=== PATIENT | male | born 1955 | race Caucasian/White ===

== ENCOUNTER 2018-01-27 08:47 | Day surgery (SDC) | payer OTHER ==
[2018-01-27 08:34] VITALS: BMI 30.5
[2018-01-27 10:54] VITALS: TEMP 97.5
[2018-01-27 12:29] VITALS: BP 124/86; PULSE 66
--- NOTE | 2018-01-29 10:32 | PATH ---
Surgical Pathology Report Patient Name: JAIDA NAM [facility]. Rec. #: [id number] /Age/Gender: 1955 (Age: 62) / M Account: [id number] Location: [facility]-ENDOSCOPY Taken: 01/27/2018 Received: 01/27/2018 Reported: 01/29/2018 Physicians: Jordana Price M.D. Specimen(s) Received A: BX SECOND PORTION DUODENUM B: BX ANTRUM C: BX GE JUNCTION D: BX MID ESOPHAGUS Clinical History Heartburn Postop diagnosis: GERD with ulceration, hiatal hernia Final Diagnosis A. DUODENUM, SECOND PORTION AND BULB BIOPSY: DUODENAL MUCOSA WITHOUT SIGNIFICANT PATHOLOGIC FINDINGS. B. STOMACH, ANTRUM, BIOPSY: GASTRIC ANTRAL MUCOSA WITH MILD CHRONIC GASTRITIS. IMMUNOHISTOCHEMICAL STAIN FOR H. PYLORI IS NEGATIVE. C. GASTROESOPHAGEAL (GE) JUNCTION, BIOPSY: SQUAMOCOLUMNAR MUCOSA WITH CHANGES OF SEVERE REFLUX ESOPHAGITIS, FOCI OF ACUTE INFLAMMATION, AND ASSOCIATED ULCERATION. NO INTESTINAL METAPLASIA OR DYSPLASIA IDENTIFIED. PAS SPECIAL STAIN FOR FUNGUS IS NEGATIVE. D. MID ESOPHAGUS, BIOPSY: SQUAMOUS MUCOSA WITH VASCULAR CONGESTION. Electronically Signed Mitzi Brewster M.D. Gross Description A. Received in formalin, labeled "biopsy duodenum second portion and bulb" are 3 funez, irregular portions of soft tissue averaging 0.4 cm. in greatest dimension. The specimens are submitted in toto in one cassette. B. Received in formalin, labeled "biopsy antrum" is a funez, irregular portion of soft tissue measuring 0.8 cm. in greatest dimension. The specimen is submitted in toto in one cassette. C. Received in formalin, labeled "biopsy GE junction" are 5 funez, irregular portions of soft tissue ranging from 0.3-0.6 cm. in greatest dimension. The specimens are submitted in toto in one cassette. D. Received in formalin, labeled "biopsy mid esophagus" are 2 funez, irregular portions of soft tissue measuring 0.2 and 0.4 cm. in greatest dimension. The specimens are submitted in toto in one cassette. 01/27/2018 saudi/01/27/2018
== END 2018-01-27 11:40 | disposition home or self-care (01) ==
LOC: JASU-ENDO 08:47
PROVIDERS: ATTEND Internal Medicine Gastroenterology
PROC: 0DB68ZX Excision of Stomach, Via Natural or Artificial Opening Endoscopic, Diagnostic (ICD-10-PCS; 2018-01-27)
PROC: 0DB28ZX Excision of Middle Esophagus, Via Natural or Artificial Opening Endoscopic, Diagnostic (ICD-10-PCS; 2018-01-27)
PROC: 0DB48ZX Excision of Esophagogastric Junction, Via Natural or Artificial Opening Endoscopic, Diagnostic (ICD-10-PCS; 2018-01-27)
PROC: 0DB98ZX Excision of Duodenum, Via Natural or Artificial Opening Endoscopic, Diagnostic (ICD-10-PCS; principal; 2018-01-27 09:15)
DX: K29.50 Unspecified chronic gastritis without bleeding (principal); K21.0 Gastro-esophageal reflux disease with esophagitis; K25.9 Gastric ulcer, unspecified as acute or chronic, without hemorrhage or perforation; K44.9 Diaphragmatic hernia without obstruction or gangrene; K21.9 Gastro-esophageal reflux disease without esophagitis; N40.0 Benign prostatic hyperplasia without lower urinary tract symptoms

== ENCOUNTER 2019-04-13 06:55 | Day surgery (SDC) | payer OTHER ==
[2019-04-12 16:00] VITALS: BMI 27.3
[2019-04-13 08:26] VITALS: TEMP 97.8
[2019-04-13 09:18] VITALS: PULSE 61
[2019-04-13 14:20] VITALS: BP 108/58
--- NOTE | 2019-04-14 16:23 | PATH ---
Surgical Pathology Report Patient Name: JAIDA NAM [facility]. Rec. #: [id number] /Age/Gender: 1955 (Age: 63) / M Account: [id number] Location: [facility]OS[facility] Taken: 04/13/2019 Received: 04/13/2019 Reported: 04/14/2019 Physicians: Jordana Price M.D. Specimen(s) Received A: CECAL POLYP B: RIGHT COLON POLYP Clinical History Adenoma surveillance, family history of colon cancer Postoperative diagnosis: Colon polyps, diverticulosis Final Diagnosis A. CECAL POLYP, BIOPSY: TUBULAR ADENOMA. B. COLON, RIGHT, POLYP, BIOPSY: TUBULAR ADENOMA. Electronically Signed Mitzi Brewster M.D. Gross Description A. Received in formalin, labeled "biopsy cecal polyp" is a funez, irregular portion of soft tissue measuring 0.4 cm. in greatest dimension. The specimen is submitted in toto in one cassette. B. Received in formalin, labeled "biopsy right colon polyp" are 2 funez, irregular portions of soft tissue measuring 0.2 and 0.9 cm. in greatest dimension. The specimens are submitted in toto in one cassette. DL/04/13/2019 saudi04/13/2019
== END 2019-04-13 09:40 | disposition home or self-care (01) ==
LOC: JASU-ENDO 06:55
PROVIDERS: ATTEND Internal Medicine Gastroenterology
PROC: 0DBH8ZX Excision of Cecum, Via Natural or Artificial Opening Endoscopic, Diagnostic (ICD-10-PCS; 2019-04-13)
PROC: 0DBK8ZX Excision of Ascending Colon, Via Natural or Artificial Opening Endoscopic, Diagnostic (ICD-10-PCS; principal; 2019-04-13 08:00)
DX: Z86.010 Personal history of colon polyps (principal); D12.0 Benign neoplasm of cecum; D12.2 Benign neoplasm of ascending colon; Z80.0 Family history of malignant neoplasm of digestive organs; K57.30 Diverticulosis of large intestine without perforation or abscess without bleeding
CPT/HCPCS: 88305-TC

== ENCOUNTER 2021-04-12 04:51 | Day surgery (SDC) | payer OTHER ==
[2021-04-12 10:08] VITALS: BMI 21.8
[2021-04-12 11:54] VITALS: TEMP 96.8
[2021-04-12 12:43] VITALS: BP 129/77; PULSE 57
== END 2021-04-12 13:32 | disposition home or self-care (01) ==
LOC: JASU-ENDO 04:51
PROVIDERS: ATTEND Internal Medicine Gastroenterology
PROC: 0DB98ZX Excision of Duodenum, Via Natural or Artificial Opening Endoscopic, Diagnostic (ICD-10-PCS; 2021-04-12)
PROC: 0DB68ZX Excision of Stomach, Via Natural or Artificial Opening Endoscopic, Diagnostic (ICD-10-PCS; 2021-04-12)
PROC: 0DB28ZX Excision of Middle Esophagus, Via Natural or Artificial Opening Endoscopic, Diagnostic (ICD-10-PCS; 2021-04-12)
PROC: 0DB38ZX Excision of Lower Esophagus, Via Natural or Artificial Opening Endoscopic, Diagnostic (ICD-10-PCS; 2021-04-12)
PROC: 0DBK8ZX Excision of Ascending Colon, Via Natural or Artificial Opening Endoscopic, Diagnostic (ICD-10-PCS; principal; 2021-04-12 11:00)
DX: D12.2 Benign neoplasm of ascending colon (principal); K64.8 Other hemorrhoids; K55.20 Angiodysplasia of colon without hemorrhage; K21.9 Gastro-esophageal reflux disease without esophagitis; K44.9 Diaphragmatic hernia without obstruction or gangrene; K29.00 Acute gastritis without bleeding
CPT/HCPCS: 88305-TC; 88342-TC

== ENCOUNTER 2022-06-11 05:11 | Day surgery (SDC) | payer OTHER ==
[2022-06-11 08:01] VITALS: BMI 27.7
[2022-06-11 09:54] VITALS: TEMP 97.8
[2022-06-11 10:23] VITALS: PULSE 59
[2022-06-11 10:26] VITALS: BP 118/71; RESP 13
== END 2022-06-11 10:56 | disposition home or self-care (01) ==
LOC: JASU-ENDO 05:11
PROVIDERS: ATTEND Internal Medicine Gastroenterology
PROC: 0DBP8ZX Excision of Rectum, Via Natural or Artificial Opening Endoscopic, Diagnostic (ICD-10-PCS; principal; 2022-06-11 09:00)
DX: Z12.11 Encounter for screening for malignant neoplasm of colon (principal); K62.1 Rectal polyp; K64.8 Other hemorrhoids; Z86.010 Personal history of colon polyps
CPT/HCPCS: 88305-TC

== ENCOUNTER 2024-02-22 04:20 | Day surgery (SDC) | payer OTHER ==
[2024-02-15 13:16] VITALS: BMI 28.2
[2024-02-22] MEDS ORDERED: MIDAZOLAM HCL 2 MG/2 ML SINGLE DOSE VIAL ONE (12:00)
[2024-02-22 12:59] VITALS: RESP 18
[2024-02-22 13:17] VITALS: BP 108/70; PULSE 66; TEMP 97
== END 2024-02-22 13:35 | disposition home or self-care (01) ==
LOC: JASU-SURG 04:20
PROVIDERS: ATTEND Urology
PROC: 0TF4XZZ Fragmentation in Left Kidney Pelvis, External Approach (ICD-10-PCS; principal; 2024-02-22 11:30)
DX: N20.0 Calculus of kidney (principal)

== ENCOUNTER 2025-06-16 05:35 | Day surgery (SDC) | payer OTHER ==
[2025-06-08 14:46] VITALS: BMI 30.4
[2025-06-16 08:56] VITALS: TEMP 97.9
[2025-06-16 09:08] VITALS: RESP 18
[2025-06-16 09:23] VITALS: PULSE 64
[2025-06-16 10:03] VITALS: BP 119/74
== END 2025-06-16 10:03 | disposition home or self-care (01) ==
LOC: JASU-ENDO 05:35
PROVIDERS: ATTEND Internal Medicine Gastroenterology
PROC: 0DBP8ZX Excision of Rectum, Via Natural or Artificial Opening Endoscopic, Diagnostic (ICD-10-PCS; 2025-06-16)
PROC: 0DB98ZX Excision of Duodenum, Via Natural or Artificial Opening Endoscopic, Diagnostic (ICD-10-PCS; 2025-06-16)
PROC: 0DB78ZX Excision of Stomach, Pylorus, Via Natural or Artificial Opening Endoscopic, Diagnostic (ICD-10-PCS; 2025-06-16)
PROC: 0DB68ZX Excision of Stomach, Via Natural or Artificial Opening Endoscopic, Diagnostic (ICD-10-PCS; 2025-06-16)
PROC: 0DB48ZX Excision of Esophagogastric Junction, Via Natural or Artificial Opening Endoscopic, Diagnostic (ICD-10-PCS; 2025-06-16)
PROC: 0DBH8ZX Excision of Cecum, Via Natural or Artificial Opening Endoscopic, Diagnostic (ICD-10-PCS; principal; 2025-06-16 08:00)
DX: Z12.11 Encounter for screening for malignant neoplasm of colon (principal); D12.0 Benign neoplasm of cecum; D12.8 Benign neoplasm of rectum; K64.8 Other hemorrhoids; K57.30 Diverticulosis of large intestine without perforation or abscess without bleeding; K29.50 Unspecified chronic gastritis without bleeding; K44.9 Diaphragmatic hernia without obstruction or gangrene; Z86.0101 Personal history of adenomatous and serrated colon polyps; Z80.0 Family history of malignant neoplasm of digestive organs; K21.00 Gastro-esophageal reflux disease with esophagitis, without bleeding
CPT/HCPCS: 88305-TC; 88342-TC